=== PATIENT | female | born 1990 | race Hispanic/Latino ===

== ENCOUNTER 2017-11-23 14:43 | Emergency (ER) | payer OTHER ==
[~2017-11-23] VITALS: Ht 152.4 cm; Wt 52.0 kg
[~2017-11-23 14:43] MED LIST: AMOX/K CLAV500 MG PO; AMOXICILLIN250 M1 PO; AMOXICILLIN500 MG PO; BACTRIM DS1 TAB PO; CIPROFLOXACN500 MG PO; DEPO-PROVER150 MG/ML IM; DOXYCYCL HYC100 MG PO; MONISTAT 34 % VA; NAPROSYN500 MG PO; OMNICEF300 MG PO; PRENATA3 OR; PRENATA3 PO; PYRIDIUM200 MG PO; RHO (D) IMMUN300 MCG IM; SPRINTEC 2828 DAY PO
[2017-11-23 15:25] LABS: IMMATURE GRANULOCYTES 0.4 % (0.0-5.0); MEAN CELL VOLUME 91.2 fL CALC (80.0-100.0); MEAN CORPUSCULAR HGB 32.1 pG CALC (26.0-32.0); MEAN CORPUSCULAR HGB CONC 35.2 g/L CALC (32.0-36.0); NEUT# 3.03 thou/uL (2.00-7.15); RED BLOOD COUNT 4.98 mill/uL (4.20-5.60); RED CELL DISTRI WIDTH 11.8 % (11.5-15.5)
[2017-11-23 15:26] LABS: HEMATOCRIT 45.4 % (37.0-47.0)
[2017-11-23 15:41] LABS: URINE BILIRUBIN - DIPSTICK NEGATIVE (NEGATIVE); URINE BLOOD DIPSTICK SMALL (NEGATIVE); URINE CLARITY SL CLOUDY; URINE COLOR YELLOW; URINE GLUCOSE - DIPSTICK NEGATIVE (NEGATIVE); URINE KETONE TRACE mg/dL (NEGATIVE); URINE LEUK ESTERASE MODERATE (NEGATIVE); URINE NITRITE - DIPSTICK POSITIVE (Negative); URINE PROTEIN - DIPSTICK 30 mg/dL (NEG-TRACE)
[2017-11-23 15:43] LABS: ALBUMIN 4.6 g/dL (3.2-5.0); ALKALINE PHOSPHATASE 104 u/l (38-126); ANION GAP 15 (6-22 (CALC)); BILIRUBIN, TOTAL 0.4 mg/dL (0.0-1.4); BUN 8 mg/dL (7-17); BUN/CREATININE RATIO 13 (12-20 (CALC)); CARBON DIOXIDE 26 mmol/l (22-30); CHLORIDE 102 mmol/l (95-108); CREATININE 0.7 mg/dL (0.5-1.0); GFR > 60 ML/MIN (>=60 (CALC)); GFR FOR AFR.AMER. > 60 ML/MIN (>=60 (CALC)); POTASSIUM 3.5 mmol/l (3.5-5.1); SGOT/AST 25 u/l (14-36); SGPT/ALT 28 u/l (9-52); SODIUM 140 mmol/l (137-146); TOTAL PROTEIN 8.3 g/dL (6.3-8.2)
[2017-11-23 15:47] LABS: URINE BACTERIA FEW hpf; URINE SQUAMOUS EPITHELIAL CELL FEW EPI/hpf (0-FEW); URINE WBC 20-50 WBC/hpf (0-5)
[2017-11-23] MEDS ORDERED: ZOFRAN4 MG/TAB PO (16:51)
[2017-11-23] MEDS ORDERED: BACTRIM DS1 TAB PO (16:51)
[2017-11-23 17:10] VITALS: BP 118/67
== END 2017-11-23 17:10 | disposition home or self-care (01) ==
LOC: ED 14:43
PROVIDERS: Emergency Medicine
DX: N39.0 Urinary tract infection, site not specified (principal); K52.9 Noninfective gastroenteritis and colitis, unspecified; R10.84 Generalized abdominal pain; R11.2 Nausea with vomiting, unspecified; R19.7 Diarrhea, unspecified; B96.4 Proteus (mirabilis) (morganii) as the cause of diseases classified elsewhere

== ENCOUNTER 2019-06-04 | Emergency (ER) | payer MEDICAID ==
[~2019-06-04] MED LIST changes: +ZOFRAN4 MG/TAB PO
== END 2019-06-04 11:15 | disposition home or self-care (01) ==
DX: S02.2XXA Fracture of nasal bones, initial encounter for closed fracture (principal); Y04.2XXA Assault by strike against or bumped into by another person, initial encounter

== ENCOUNTER 2019-09-02 17:28 | Emergency (ER) | payer MEDICAID ==
[~2019-09-02] VITALS: Ht 152.4 cm; Wt 59.0 kg
[2019-09-02 17:56] LABS: URINE BILIRUBIN - DIPSTICK NEGATIVE (NEGATIVE); URINE BLOOD DIPSTICK MODERATE (NEGATIVE); URINE COLOR YELLOW; URINE GLUCOSE - DIPSTICK NEGATIVE (NEGATIVE); URINE KETONE TRACE mg/dL (NEGATIVE); URINE LEUK ESTERASE MODERATE (NEGATIVE); URINE NITRITE - DIPSTICK POSITIVE (Negative); URINE PH 6.5 (4.5-8.0); URINE PROTEIN - DIPSTICK 100 mg/dL (NEG-TRACE); URINE SPECIFIC GRAVITY 1.025; URINE UROBILINOGEN - DIPSTICK 0.2 E.U./dL (0.2)
[2019-09-02 18:05] LABS: URINE BACTERIA MODERATE hpf; URINE RBC TNTC RBC/hpf (0-5); URINE SQUAMOUS EPITHELIAL CELL FEW EPI/hpf (0-FEW); URINE WBC TNTC WBC/hpf (0-5)
[2019-09-02] MEDS ORDERED: KEFLEX500 M1 PO (18:18)
[2019-09-02] MEDS ORDERED: PYRIDIUM200 MG PO (18:18)
[2019-09-02 18:51] VITALS: BP 102/57
== END 2019-09-02 18:28 | disposition home or self-care (01) ==
LOC: ED 17:28
DX: N39.0 Urinary tract infection, site not specified (principal); B96.20 Unspecified Escherichia coli [E. coli] as the cause of diseases classified elsewhere

== ENCOUNTER 2020-04-18 11:06 | Observation (INO) | payer MEDICAID ==
[~2020-04-18] VITALS: Ht 152.4 cm; Wt 62.7 kg
[~2020-04-18 11:06] MED LIST changes: +KEFLEX500 M1 PO
--- NOTE | 2020-04-18 11:10 | NUR ---
PT AMBUULATORTY TO ROOM # 6 FOR BEDSIDE TRIAGE, PROVIDER NOTIFED OF PT STATUS.
--- NOTE | 2020-04-18 11:40 | NUR ---
IV ACCESS INTIATED WITH LAB SPECIMENS OBTAINED. PT TOLERATED WELL. ADVISED AIT OF WAIT TIME FOR RESULTS. VERBALIZED UNDERSTANDING. DENIES ANY NEEDS. CALL LIGHT WITHIN [facility].
[2020-04-18 11:46] LABS: HEMOGLOBIN 14.2 g/dl (12.0-16.0); IMMATURE GRANULOCYTES 0.4 % (0.0-5.0); MEAN CELL VOLUME 90.1 fL CALC (80.0-100.0); MEAN CORPUSCULAR HGB 31.2 pG CALC (26.0-32.0); MEAN CORPUSCULAR HGB CONC 34.6 g/dL CAL (32.0-36.0); NEUT# 13.9 thou/uL (2.00-7.15); RED BLOOD COUNT 4.55 mill/uL (4.20-5.60); RED CELL DISTRI WIDTH 12.4 % (11.5-15.5)
[2020-04-18 11:49] LABS: URINE BILIRUBIN - DIPSTICK NEGATIVE (NEGATIVE); URINE BLOOD DIPSTICK MODERATE (NEGATIVE); URINE GLUCOSE - DIPSTICK NEGATIVE (NEGATIVE); URINE KETONE 40 mg/dL (NEGATIVE); URINE PROTEIN - DIPSTICK 100 mg/dL (NEG-TRACE); URINE SPECIFIC GRAVITY 1.025; URINE UROBILINOGEN - DIPSTICK 0.2 E.U./dL (0.2)
[2020-04-18 11:57] LABS: ALBUMIN 4.6 g/dL (3.2-5.0); ALKALINE PHOSPHATASE 102 u/l (38-126); BUN 8 mg/dL (7-17); BUN/CREATININE RATIO 12 (12-20 (CALC)); CHLORIDE 104 mmol/l (95-108); CREATININE 0.7 mg/dL (0.5-1.0); GFR > 60 ML/MIN (>=60 (CALC)); GFR FOR AFR.AMER. > 60 ML/MIN (>=60 (CALC)); LIPASE 32 u/l (23-300); POTASSIUM 3.6 mmol/l (3.5-5.1); SGOT/AST 23 u/l (14-36); SODIUM 134 mmol/l (137-146); TOTAL PROTEIN 8.9 g/dL (6.3-8.2)
[2020-04-18 11:59] LABS: ANION GAP 16 (6-22 (CALC)); BILIRUBIN, TOTAL 1.2 mg/dL (0.0-1.4); CARBON DIOXIDE 18 mmol/l (22-30)
[2020-04-18 12:04] LABS: URINE BACTERIA MODERATE hpf; URINE COLOR DK. YELLOW; URINE EPITHELIAL CELLS MANY EPI/hpf (0-FEW); URINE LEUK ESTERASE MODERATE (NEGATIVE); URINE NITRITE - DIPSTICK POSITIVE (Negative); URINE WBC 20-50 WBC/hpf (0-5)
--- NOTE | 2020-04-18 12:37 | NUR ---
IV ABX INTIATED PER EDP ORDER. PT TOLERATING INFUSION WELL. ADVISED CONT WAIT TIME FOR RESULTS. VERBALIZED UNDERSTANDING. DENIES ANY NEEDS. CALL LIGHT WITHIN REACH.
--- NOTE | 2020-04-18 13:02 | NUR ---
PATIENT RESTING QUIETLY,AWARE OF PLAN OF CARE.
--- NOTE | 2020-04-18 13:07 | NUR ---
PROVIDER AT BEDSIDE TO DISCUSS FINDINGS AND ADMISSION.
--- NOTE | 2020-04-18 13:12 | NUR ---
SBAR PRINTED TO FLOOR
--- NOTE | 2020-04-18 14:10 | NUR ---
QUIETLY RESTING,AWAITING ADMISSION.
--- NOTE | 2020-04-18 15:27 | NUR ---
ASSISTED TO BR. HUI GARCIA
--- NOTE | 2020-04-18 15:32 | NUR ---
REPORT IM SBAR ORMAT TO LESANURSE
--- NOTE | 2020-04-18 15:41 | NUR ---
PATIENT TRANSFERRED TO ROOM 273 VIA WC. STABLE UPON ARRIVAL.
[2020-04-18 16:00] VITALS: BP 85/57
--- NOTE | 2020-04-18 16:00 | NUR ---
PATIENT RECEIVED FROM ER AT THIS TIME. VERBAL REPORT GIVEN BY BREE RN. PATIENT TRANSFERED TO BED; DENIES PAIN OR NAUSEA AT THIS TIME. PT IS A&O X 3 AND ON ROOMAIR. ADMISSION, ASSESSMENT, AND VS OBTAINED. STANDARD AND SAFETY MEASURES IN PLACE. PATIENT ORIENTED TO ROOM AND SURROUNDING AND TO BED. NO S/SX OF DISTRESS OBSERVED. NO NEEDS EXPRESSED AT THIS TIME. WILL CONTINUE TO MONITOR.
[2020-04-18 20:00] VITALS: BP 105/66
--- NOTE | 2020-04-18 20:00 | NUR ---
PHYSICAL ASSESMENT COMPLETE. PT CURRENTLY DENIES PAIN OR DISCOMFORT. SCHEDULED MEDICATIONS AND PRN MEDICATION ADMINISTERED, SEE E-MAR. PT DENIES ANY NEEDS AT THIS TIME. PLAN OF CARE REVIEWED, PT DENIES QUESTIONS, VERBALIZES UNDERSTANDING. ITEMS WITHIN REACH, BED LOCKED IN LOW POSITION W/ BEDRAILS UP X2. CALL OVIEDO WITHIN REACH, AGREES TO CALL PRN.
--- NOTE | 2020-04-19 00:04 | NUR ---
PT LAYING IN BED WITH EYES CLOSED, APPEARS TO BE SLEEPING, APPEARS COMFORTABLE AND IN NO DISTRESS. RESPIRATIONS REGULAR AND UNLABORED. ITEMS REMAIN WITHIN REACH, CALL O[facility]EDO REMAINS WITHIN REACH. BED REMAINS LOCKED AND IN LOW POSITION WITH BEDRAILS UP X2. WILL CONTINUE TO MONITOR.
[2020-04-19 04:00] VITALS: BP 94/56
--- NOTE | 2020-04-19 04:15 | NUR ---
PT RESTING IN BED, C/O OF HEADACHE. PROVIDE PT WITH PRN TYLENOL, PT VOICES NO NEEDS OR COMPLAINTS AT THIS TIME. CALL LIGHT IN REACH, CONTINUE TO MONITOR.
[2020-04-19 05:50] LABS: HEMATOCRIT 37.9 % (37.0-47.0); HEMOGLOBIN 12.8 g/dl (12.0-16.0); IMMATURE GRANULOCYTES 0.4 % (0.0-5.0); MEAN CELL VOLUME 91.5 fL CALC (80.0-100.0); MEAN CORPUSCULAR HGB 30.9 pG CALC (26.0-32.0); MEAN CORPUSCULAR HGB CONC 33.8 g/dL CAL (32.0-36.0); NEUT# 9.56 thou/uL (2.00-7.15); RED BLOOD COUNT 4.14 mill/uL (4.20-5.60); RED CELL DISTRI WIDTH 12.4 % (11.5-15.5)
[2020-04-19 06:17] LABS: ANION GAP 12 (6-22 (CALC)); BUN 4 mg/dL (7-17); BUN/CREATININE RATIO 7 (12-20 (CALC)); CARBON DIOXIDE 20 mmol/l (22-30); CHLORIDE 108 mmol/l (95-108); CREATININE 0.6 mg/dL (0.5-1.0); GFR > 60 ML/MIN (>=60 (CALC)); GFR FOR AFR.AMER. > 60 ML/MIN (>=60 (CALC)); POTASSIUM 3.2 mmol/l (3.5-5.1); SODIUM 136 mmol/l (137-146)
[2020-04-19 07:30] VITALS: BP 90/59
--- NOTE | 2020-04-19 07:30 | NUR ---
PATIENT RESTING IN BED AT THIS TIME CALL LIGHT WITHIN REACH DENIES ANY PAIN. SIDERAILS UP X 2. PATIETN STATING "I WANT TO GO HOME" TODAY. ADISED WILL BE AROUND TO SEE HER AND PATIENT STATED OKAY.
--- NOTE | 2020-04-19 11:25 | NUR ---
Discharge instructions given. Patient verbalizes understanding of same. Discharged in stable condition via Ambulatory to Home with *Other. All belongings sent with pt.
== END 2020-04-19 11:26 | disposition home or self-care (01) ==
LOC: ED 11:06 → ED-I 13:03 → ED 13:16 → MS2 13:17
PROVIDERS: ADMIT Internal Medicine; ATTEND Internal Medicine
DX: N10 Acute pyelonephritis (principal); B96.20 Unspecified Escherichia coli [E. coli] as the cause of diseases classified elsewhere; N20.0 Calculus of kidney; T83.84XA Pain due to genitourinary prosthetic devices, implants and grafts, initial encounter; E87.6 Hypokalemia; Y83.1 Surgical operation with implant of artificial internal device as the cause of abnormal reaction of the patient, or of later complication, without mention of misadventure at the time of the procedure; Z87.442 Personal history of urinary calculi; Z20.822 Contact with and (suspected) exposure to COVID-19
CPT/HCPCS: G0378; J1650

== ENCOUNTER 2020-09-26 18:49 | Emergency (ER) | payer MEDICAID | END 2020-09-26 19:05 | disposition left against medical advice (07) | LOC: ED 18:49 | DX: Z91.19 Patient's noncompliance with other medical treatment and regimen (principal) ==

== ENCOUNTER 2020-10-05 09:45 | Emergency (ER) | payer MEDICAID ==
[~2020-10-05] VITALS: Ht 152.4 cm; Wt 65.0 kg
[2020-10-05 11:40] VITALS: BP 119/64
== END 2020-10-05 11:40 | disposition home or self-care (01) ==
LOC: ED 09:45
DX: U07.1 COVID-19 (principal); F17.200 Nicotine dependence, unspecified, uncomplicated

== ENCOUNTER 2020-11-25 07:50 | Emergency (ER) | payer MEDICAID ==
[2020-11-25 08:10] VITALS: BP 105/59
[2020-11-25 09:42] LABS: HEMATOCRIT 43.2 % (37.0-47.0); HEMOGLOBIN 14.6 g/dl (12.0-16.0); IMMATURE GRANULOCYTES 0.2 % (0.0-5.0); MEAN CELL VOLUME 92.9 fL CALC (80.0-100.0); MEAN CORPUSCULAR HGB 31.4 pG CALC (26.0-32.0); MEAN CORPUSCULAR HGB CONC 33.8 g/dL CAL (32.0-36.0); NEUT# 7.52 thou/uL (2.00-7.15); RED BLOOD COUNT 4.65 mill/uL (4.20-5.60); RED CELL DISTRI WIDTH 11.9 % (11.5-15.5)
[2020-11-25 09:43] LABS: URINE BILIRUBIN - DIPSTICK NEGATIVE (NEGATIVE); URINE BLOOD DIPSTICK SMALL (NEGATIVE); URINE COLOR YELLOW; URINE GLUCOSE - DIPSTICK NEGATIVE (NEGATIVE); URINE KETONE NEGATIVE (NEGATIVE); URINE PROTEIN - DIPSTICK NEGATIVE (NEG-TRACE); URINE UROBILINOGEN - DIPSTICK 0.2 E.U./dL (0.2)
[2020-11-25 09:49] LABS: URINE BACTERIA FEW hpf; URINE EPITHELIAL CELLS MODERATE EPI/hpf (0-FEW); URINE LEUK ESTERASE MODERATE (NEGATIVE); URINE NITRITE - DIPSTICK NEGATIVE (Negative)
== END 2020-11-25 10:45 | disposition home or self-care (01) ==
LOC: ED 07:50
DX: O20.0 Threatened abortion (principal); O99.330 Smoking (tobacco) complicating pregnancy, unspecified trimester; F17.200 Nicotine dependence, unspecified, uncomplicated; Z87.442 Personal history of urinary calculi; Z3A.00 Weeks of gestation of pregnancy not specified

== ENCOUNTER 2021-02-08 12:26 | Emergency (ER) | payer MEDICAID ==
[~2021-02-08] VITALS: Ht 152.4 cm; Wt 54.6 kg
[2021-02-08 13:40] VITALS: BP 111/80
== END 2021-02-08 13:40 | disposition home or self-care (01) ==
LOC: ED 12:26
DX: S69.81XA Other specified injuries of right wrist, hand and finger(s), initial encounter (principal); W22.8XXA Striking against or struck by other objects, initial encounter; Y92.89 Other specified places as the place of occurrence of the external cause

== ENCOUNTER 2021-03-14 09:32 | Emergency (ER) | payer OTHER, MEDICAID ==
[~2021-03-14] VITALS: Ht 152.4 cm; Wt 53.0 kg
[2021-03-14 10:31] LABS: HEMATOCRIT 45.4 % (37.0-47.0); HEMOGLOBIN 15.4 g/dl (12.0-16.0); IMMATURE GRANULOCYTES 0.1 % (0.0-5.0); MEAN CELL VOLUME 94.4 fL CALC (80.0-100.0); MEAN CORPUSCULAR HGB CONC 33.9 g/dL CAL (32.0-36.0); NEUT# 10.07 thou/uL (2.00-7.15); RED BLOOD COUNT 4.81 mill/uL (4.20-5.60); RED CELL DISTRI WIDTH 12.2 % (11.5-15.5)
[2021-03-14 10:38] LABS: URINE BILIRUBIN - DIPSTICK NEGATIVE (NEGATIVE); URINE BLOOD DIPSTICK NEGATIVE (NEGATIVE); URINE COLOR YELLOW; URINE GLUCOSE - DIPSTICK NEGATIVE (NEGATIVE); URINE KETONE 40 mg/dL (NEGATIVE); URINE LEUK ESTERASE NEGATIVE (NEGATIVE); URINE PH 6.5 (4.5-8.0); URINE PROTEIN - DIPSTICK TRACE mg/dL (NEG-TRACE); URINE SPECIFIC GRAVITY 1.025; URINE UROBILINOGEN - DIPSTICK 0.2 E.U./dL (0.2)
[2021-03-14 10:40] LABS: URINE NITRITE - DIPSTICK POSITIVE (Negative)
[2021-03-14 10:41] LABS: URINE BACTERIA FEW hpf; URINE EPITHELIAL CELLS MODERATE EPI/hpf (0-FEW)
[2021-03-14 10:48] LABS: ALBUMIN 4.5 g/dL (3.2-5.0); ALKALINE PHOSPHATASE 77 u/l (38-126); BUN 11 mg/dL (7-17); BUN/CREATININE RATIO 14 (12-20 (CALC)); CHLORIDE 105 mmol/l (95-108); CREATININE 0.8 mg/dL (0.5-1.0); ETHYL ALCOHOL 16 mg/dl (0-30); GFR > 60 ML/MIN (>=60 (CALC)); GFR FOR AFR.AMER. > 60 ML/MIN (>=60 (CALC)); LIPASE 58 u/l (23-300); POTASSIUM 3.5 mmol/l (3.5-5.1); SODIUM 140 mmol/l (137-146); TOTAL PROTEIN 8.2 g/dL (6.3-8.2)
[2021-03-14 10:50] LABS: ANION GAP 13 (6-22 (CALC)); BILIRUBIN, TOTAL 0.5 mg/dL (0.0-1.4); CARBON DIOXIDE 26 mmol/l (22-30); SGOT/AST 42 u/l (14-36)
[2021-03-14] MEDS ORDERED: CEPHALEXIN500 M1 PO (13:46)
[2021-03-14 13:47] VITALS: BP 107/65
== END 2021-03-14 13:47 | disposition home or self-care (01) | DRG 90 ==
LOC: ED 09:32
PROVIDERS: Family Medicine
DX: S06.0X9A Concussion with loss of consciousness of unspecified duration, initial encounter (principal); S91.111A Laceration without foreign body of right great toe without damage to nail, initial encounter; S70.11XA Contusion of right thigh, initial encounter; M54.50 Low back pain, unspecified; F41.9 Anxiety disorder, unspecified; V57.5XXA Driver of pick-up truck or van injured in collision with fixed or stationary object in traffic accident, initial encounter
CPT/HCPCS: Q9967

== ENCOUNTER 2021-04-13 09:17 | Emergency (ER) | payer MEDICAID ==
[~2021-04-13] VITALS: Ht 152.4 cm; Wt 50.0 kg
[~2021-04-13 09:17] MED LIST changes: +CEPHALEXIN500 M1 PO
[2021-04-13 10:23] LABS: URINE BILIRUBIN - DIPSTICK NEGATIVE (NEGATIVE); URINE BLOOD DIPSTICK SMALL (NEGATIVE); URINE COLOR YELLOW; URINE GLUCOSE - DIPSTICK NEGATIVE (NEGATIVE); URINE KETONE >=80 mg/dL (NEGATIVE); URINE LEUK ESTERASE TRACE (NEGATIVE); URINE PROTEIN - DIPSTICK TRACE mg/dL (NEG-TRACE); URINE SPECIFIC GRAVITY 1.025; URINE UROBILINOGEN - DIPSTICK 0.2 E.U./dL (0.2)
[2021-04-13 10:24] LABS: URINE NITRITE - DIPSTICK POSITIVE (Negative)
[2021-04-13 10:30] LABS: URINE BACTERIA MANY hpf; URINE SQUAMOUS EPITHELIAL CELL FEW EPI/hpf (0-FEW)
[2021-04-13 11:05] VITALS: BP 138/67
== END 2021-04-13 11:05 | disposition home or self-care (01) ==
LOC: ED 09:17
PROVIDERS: Family Medicine
DX: U07.1 COVID-19 (principal); F41.9 Anxiety disorder, unspecified; F17.210 Nicotine dependence, cigarettes, uncomplicated

== ENCOUNTER 2022-12-05 09:45 | Emergency (ER) | payer MEDICAID ==
[2022-12-05] VITALS (9 sets, daily range): BP systolic 106–117; BP diastolic 50–77
[~2022-12-05] VITALS: Ht 152.4 cm; Wt 59.4 kg
[2022-12-05 10:22] LABS: BASO% 0.4 % (0-3); EOS% 1.5 % (0-8); HEMATOCRIT 40.5 % (37.0-47.0); IMMATURE GRANULOCYTES 0.1 % (0.0-5.0); LYMPH% 22.3 % (15-41); MEAN CELL VOLUME 93.3 fL CALC (80.0-100.0); MEAN CORPUSCULAR HGB 32.3 pG CALC (26.0-32.0); MEAN CORPUSCULAR HGB CONC 34.6 g/dL CAL (32.0-36.0); MONO% 8.7 % (2-13); NEUT# 4.88 thou/uL (2.00-7.15); RED BLOOD COUNT 4.34 mill/uL (4.20-5.60); RED CELL DISTRI WIDTH 11.5 % (11.5-15.5)
[2022-12-05 10:36] LABS: ALKALINE PHOSPHATASE 81 u/l (38-126); BILIRUBIN, TOTAL 0.5 mg/dL (0.02-1.3); BUN 6 mg/dL (7-17); BUN/CREATININE RATIO 8 (12-20 (CALC)); CHLORIDE 110 mmol/l (95-108); CREATININE 0.7 mg/dL (0.5-1.0); GFR FOR AFR.AMER. > 60 ML/MIN (>=60 (CALC)); GFR OTHER RACES > 60 ML/MIN (>=60 (CALC)); POTASSIUM 3.8 mmol/l (3.5-5.1); SGOT/AST 28 u/l (14-36); SODIUM 139 mmol/l (137-146); TOTAL PROTEIN 7.3 g/dL (6.3-8.2)
[2022-12-05 10:44] LABS: ANION GAP 14 (6-22 (CALC)); CARBON DIOXIDE 19 mmol/l (22-30)
[2022-12-05 10:53] LABS: BETA-HCG, QUANT(RESULT NUMBER) 22 mIU/mL
== END 2022-12-05 11:50 | disposition home or self-care (01) ==
LOC: ED 09:45
PROVIDERS: Family Medicine
DX: O46.91 Antepartum hemorrhage, unspecified, first trimester (principal); Z3A.01 Less than 8 weeks gestation of pregnancy; Z67.91 Unspecified blood type, Rh negative
CPT/HCPCS: J2790

== ENCOUNTER 2022-12-06 07:22 | Emergency (ER) | payer MEDICAID ==
[~2022-12-06] VITALS: Ht 152.4 cm; Wt 59.0 kg
[2022-12-06 07:56] LABS: BASO% 0.2 % (0-3); EOS% 2.1 % (0-8); HEMATOCRIT 43.5 % (37.0-47.0); HEMOGLOBIN 14.9 g/dl (12.0-16.0); IMMATURE GRANULOCYTES 0.2 % (0.0-5.0); MEAN CELL VOLUME 94.4 fL CALC (80.0-100.0); MEAN CORPUSCULAR HGB 32.3 pG CALC (26.0-32.0); MEAN CORPUSCULAR HGB CONC 34.3 g/dL CAL (32.0-36.0); MONO% 10.8 % (2-13); NEUT# 7.11 thou/uL (2.00-7.15); NEUT% 78.7 % (42-76); RED BLOOD COUNT 4.61 mill/uL (4.20-5.60); RED CELL DISTRI WIDTH 11.6 % (11.5-15.5)
[2022-12-06 08:14] LABS: ALBUMIN 4.2 g/dL (3.2-5.0); ALKALINE PHOSPHATASE 91 u/l (38-126); ANION GAP 12 (6-22 (CALC)); BUN 10 mg/dL (7-17); BUN/CREATININE RATIO 12 (12-20 (CALC)); CARBON DIOXIDE 22 mmol/l (22-30); CHLORIDE 106 mmol/l (95-108); CREATININE 0.9 mg/dL (0.5-1.0); GFR FOR AFR.AMER. > 60 ML/MIN (>=60 (CALC)); GFR OTHER RACES > 60 ML/MIN (>=60 (CALC)); POTASSIUM 3.7 mmol/l (3.5-5.1); SGOT/AST 27 u/l (14-36); SODIUM 136 mmol/l (137-146); TOTAL PROTEIN 7.7 g/dL (6.3-8.2)
[2022-12-06 08:15] LABS: BILIRUBIN, TOTAL 0.8 mg/dL (0.02-1.3)
[2022-12-06 10:29] VITALS: BP 115/49
== END 2022-12-06 10:40 | disposition home or self-care (01) ==
LOC: ED 07:22
PROVIDERS: Family Medicine
DX: O03.9 Complete or unspecified spontaneous abortion without complication (principal)

== ENCOUNTER 2022-12-07 11:51 | Emergency (ER) | payer MEDICAID ==
[~2022-12-07] VITALS: Ht 152.4 cm; Wt 59.4 kg
[2022-12-07 12:01] VITALS: BP 114/91
[2022-12-07 12:31] VITALS: BP 118/99
[2022-12-07 13:00] VITALS: BP 122/86
[2022-12-07 13:30] VITALS: BP 117/79
[2022-12-07 14:01] VITALS: BP 133/79
[2022-12-07 14:05] VITALS: BP 133/79
== END 2022-12-07 14:13 | disposition home or self-care (01) ==
LOC: ED 11:51
DX: B34.9 Viral infection, unspecified (principal); Z20.822 Contact with and (suspected) exposure to COVID-19